=== PATIENT | female | born 1965 | race Caucasian/White ===

== ENCOUNTER 2021-02-26 10:54 | Emergency (ER) | payer BC, OTHER ==
--- NOTE | 2021-02-26 12:16 | EDM.PDOC ---
ED HPI GENERAL MEDICAL PROBLEM - General Chief Complaint: Respiratory Problem Stated Complaint: COUGH,SOB Time Seen by Provider: 02/26/21 13:00 Source of Information: Reports: Patient, Family History Limitations: Reports: No Limitations - History of Present Illness INITIAL COMMENTS - FREE TEXT/NARRATIVE: 55-year-old female on disability because of lumbar spine surgeries and serious disease comes now because she has had a cough of increasing severity and intensity for the last week with cough keeping her awake at night with apparently shaking chills fever and loss of appetite. 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 Her chest hurts when she coughs because she has been coughing a fair amount. No cardiac disease noted. She apparently had disc protrusion during prolonged labor with a 10 pound child some 30 years ago. She has not had Covid vaccine but she has not been out of the house she has confined primarily because of her disability. - Related Data Allergies Allergy/AdvReac Type Severity Reaction Status Date / Time Sulfa (Sulfonamide Allergy Rash Verified 02/26/21 11:14 Antibiotics) Home Meds: Home Meds Cholecalciferol (Vitamin D3) [Vitamin D3] 10,000 unit PO DAILY 02/26/21 [History] Dexlansoprazole [Dexilant] 60 mg PO DAILY 02/26/21 [History] Diclofenac Sodium [Voltaren 1% Gel] 1 applic TOP QID 02/26/21 [History] Escitalopram [Lexapro] 20 mg PO DAILY 02/26/21 [History] Gabapentin [Neurontin] 900 mg PO TID 02/26/21 [History] Hydrocodone/Acetaminophen [HYDROcodone-Acetaminophen 2.5-325 MG] 2 tab PO Q6H PRN 02/26/21 [History] LORazepam [Ativan] 1 mg PO BID PRN 02/26/21 [History] SUMAtriptan [Imitrex] 50 mg PO Q2H PRN 02/26/21 [History] Warfarin [Coumadin] 2 mg PO ASDIRECTED 02/26/21 [History] Warfarin [Coumadin] 4 mg PO ASDIRECTED 02/26/21 [History] buPROPion [buPROPion XL] 300 mg PO DAILY 02/26/21 [History] busPIRone [Buspar] 30 mg PO BID 02/26/21 [History] tiZANidine [Zanaflex] 2 mg PO BID PRN 02/26/21 [History] Social & Family History - Tobacco Use Tobacco Use Status *Q: Never Tobacco User - Caffeine Use Caffeine Use: Reports: None - Recreational Drug Use Recreational Drug Use: No ED ROS GENERAL - Review of Systems Review Of Systems: Comprehensive ROS is negative, except as noted in HPI. ED EXAM, GENERAL - Physical Exam Exam: See Below Free Text/Narrative:: Alert cooperative female lying on the gurney not appearing in great distress HEENT shows eyes ears nose and throat appear to be normal no facial droop vision appears to be grossly normal Neck is supple normal range of motion with it out increased nodes Chest is clear on auscultation with a regular rate and rhythm although a little rapid rate now Abdomen is soft with active bowel sounds and nontender without mass Extremities without edema Skin appears normal without rash or ecchymosis Neurologic physiologic DTR tone and coordination Course - Vital Signs Text/Narrative:: Covid test is positive on February 26 in the emergency department Patient remained stable in the emergency department. At 430 she is eating. Reviewed laboratory shows that she has mildly altered laboratory tests compatible with early Covid. Chest x-ray is okay on my review I discussed with her various options and we will do an outpatient order for an antiviral which she can perhaps get tomorrow I also discussed with her the use of ivermectin which is recently shown in the literature to be effective in reducing viral counts and I will prescribe 3 mg ivermectin twice daily for the next 3 days. She is camping here from out of town. She is to return for new or worse symptoms. Does not need supplemental oxygen at this juncture. Last Recorded V/S: Last Vital Signs Temp 37.6 C 02/26/21 11:18 Pulse 103 H 02/26/21 15:29 Resp 18 02/26/21 13:42 BP 129/81 02/26/21 15:29 Pulse Ox 95 02/26/21 15:29 - Orders/Labs/Meds Orders: Active Orders 24 hr Category Date Time Status EKG Documentation Completion [RC] ASDIRECTED Care 02/26/21 13:06 Active CULTURE BLOOD [BC] Stat Lab 02/26/21 13:34 Received CULTURE RESPIRATORY + SMEAR [RM] Stat Lab 02/26/21 13:14 Ordered EKG 12 Lead [EK] Stat Ther 02/26/21 13:04 Ordered Labs: Laboratory Tests 02/26/21 02/26/21 02/26/21 Range/Units 13:05 13:15 13:19 WBC 3.5 L (4.5-11.0) K/uL RBC 4.17 (3.30-5.50) M/uL Hgb 13.4 (12.0-15.0) g/dL Hct 40.5 (36.0-48.0) % MCV 97 (80-98) fL MCH 32 H (27-31) pg MCHC 33 (32-36) % Plt Count 154 (150-400) K/uL PT (9.5-12.0) sec INR (0.80-1.20) D-Dimer, Quantitative (0.0-500.0) ng/mL ABG Hemoglobin 13.8 (12.0-16.0) g/dL ABG Oxyhemoglobin 62.6 % ABG Carboxyhemoglobin 1.5 (0.0-1.6) % ABG Methemoglobin 1.1 % VBG pH 7.460 H (7.350-7.450) VBG pCO2 37.4 mm/Hg VBG pO2 33.2 mm/Hg VBG HCO3 26.2 mmol/L VBG Total CO2 23.1 mmol/L VBG O2 Saturation 64.3 VBG O2 Content 12.1 %vol VBG Base Excess 2.9 mm/L O2 Delivery Device Room air Sodium (140-148) mmol/L Potassium (3.6-5.2) mmol/L Chloride (100-108) mmol/L Carbon Dioxide (21-32) mmol/L Anion Gap (5.0-14.0) mmol/L BUN (7-18) mg/dL Creatinine (0.6-1.0) mg/dL Est Cr Clr Drug Dosing mL/min Estimated GFR (MDRD) (>60) Glucose (74-106) mg/dL Calcium (8.5-10.1) mg/dL Ferritin 110 (8-388) ng/ml Total Bilirubin (0.2-1.0) mg/dL AST (15-37) U/L ALT (12-78) U/L Alkaline Phosphatase (46-116) U/L Troponin I (0.000-0.056) ng/mL C-Reactive Protein (0.0-0.3) mg/dL NT-Pro-B Natriuret Pep (5-125) pg/mL Total Protein (6.4-8.2) g/dL Albumin (3.4-5.0) g/dL Globulin (2.3-3.5) g/dL Albumin/Globulin Ratio (1.2-2.2) Urine Color (YELLOW) Urine Appearance (CLEAR) Urine pH (5.0-8.0) Ur Specific [place] (1.008-1.030) Urine Protein (NEGATIVE) mg/dL Urine Glucose (UA) (NEGATIVE) mg/dL Urine Ketones (NEGATIVE) mg/dL Urine Occult Blood (NEGATIVE) Urine Nitrite (NEGATIVE) Urine Bilirubin (NEGATIVE) Urine Urobilinogen (0.2-1.0) EU/dL Ur Leukocyte Esterase (NEGATIVE) Urine RBC (0-5) Urine WBC (0-5) Ur Epithelial Cells Amorphous Sediment Urine Bacteria Urine Mucus SARS CoV-2 RNA Rapid DARRYN 02/26/21 02/26/21 02/26/21 Range/Units 13:19 13:19 13:19 WBC (4.5-11.0) K/uL RBC (3.30-5.50) M/uL Hgb (12.0-15.0) g/dL Hct (36.0-48.0) % MCV (80-98) fL MCH (27-31) pg MCHC (32-36) % Plt Count (150-400) K/uL PT 19.4 H (9.5-12.0) sec INR 1.80 H (0.80-1.20) D-Dimer, Quantitative 351.71 (0.0-500.0) ng/mL ABG Hemoglobin (12.0-16.0) g/dL ABG Oxyhemoglobin % ABG Carboxyhemoglobin (0.0-1.6) % ABG Methemoglobin % VBG pH (7.350-7.450) VBG pCO2 mm/Hg VBG pO2 mm/Hg VBG HCO3 mmol/L VBG Total CO2 mmol/L VBG O2 Saturation VBG O2 Content %vol VBG Base Excess mm/L O2 Delivery Device Sodium 141 (140-148) mmol/L Potassium 4.3 (3.6-5.2) mmol/L Chloride 103 (100-108) mmol/L Carbon Dioxide 28 (21-32) mmol/L Anion Gap 9.6 (5.0-14.0) mmol/L BUN 9 (7-18) mg/dL Creatinine 1.1 H (0.6-1.0) mg/dL Est Cr Clr Drug Dosing 49.31 mL/min Estimated GFR (MDRD) 51 L (>60) Glucose 89 (74-106) mg/dL Calcium 8.7 (8.5-10.1) mg/dL Ferritin (8-388) ng/ml Total Bilirubin 0.2 (0.2-1.0) mg/dL AST 50 H (15-37) U/L ALT 55 (12-78) U/L Alkaline Phosphatase 77 (46-116) U/L Troponin I < 0.017 (0.000-0.056) ng/mL C-Reactive Protein 1.22 H (0.0-0.3) mg/dL NT-Pro-B Natriuret Pep 65 (5-125) pg/mL Total Protein 6.8 (6.4-8.2) g/dL Albumin 3.5 (3.4-5.0) g/dL Globulin 3.3 (2.3-3.5) g/dL Albumin/Globulin Ratio 1.1 L (1.2-2.2) Urine Color (YELLOW) Urine Appearance (CLEAR) Urine pH (5.0-8.0) Ur Specific [place] (1.008-1.030) Urine Protein (NEGATIVE) mg/dL Urine Glucose (UA) (NEGATIVE) mg/dL Urine Ketones (NEGATIVE) mg/dL Urine Occult Blood (NEGATIVE) Urine Nitrite (NEGATIVE) Urine Bilirubin (NEGATIVE) Urine Urobilinogen (0.2-1.0) EU/dL Ur Leukocyte Esterase (NEGATIVE) Urine RBC (0-5) Urine WBC (0-5) Ur Epithelial Cells Amorphous Sediment Urine Bacteria Urine Mucus SARS CoV-2 RNA Rapid DARRYN 02/26/21 02/26/21 Range/Units 13:20 16:13 WBC (4.5-11.0) K/uL RBC (3.30-5.50) M/uL Hgb (12.0-15.0) g/dL Hct (36.0-48.0) % MCV (80-98) fL MCH (27-31) pg MCHC (32-36) % Plt Count (150-400) K/uL PT (9.5-12.0) sec INR (0.80-1.20) D-Dimer, Quantitative (0.0-500.0) ng/mL ABG Hemoglobin (12.0-16.0) g/dL ABG Oxyhemoglobin % ABG Carboxyhemoglobin (0.0-1.6) % ABG Methemoglobin % VBG pH (7.350-7.450) VBG pCO2 mm/Hg VBG pO2 mm/Hg VBG HCO3 mmol/L VBG Total CO2 mmol/L VBG O2 Saturation VBG O2 Content %vol VBG Base Excess mm/L O2 Delivery Device Sodium (140-148) mmol/L Potassium (3.6-5.2) mmol/L Chloride (100-108) mmol/L Carbon Dioxide (21-32) mmol/L Anion Gap (5.0-14.0) mmol/L BUN (7-18) mg/dL Creatinine (0.6-1.0) mg/dL Est Cr Clr Drug Dosing mL/min Estimated GFR (MDRD) (>60) Glucose (74-106) mg/dL Calcium (8.5-10.1) mg/dL Ferritin (8-388) ng/ml Total Bilirubin (0.2-1.0) mg/dL AST (15-37) U/L ALT (12-78) U/L Alkaline Phosphatase (46-116) U/L Troponin I (0.000-0.056) ng/mL C-Reactive Protein (0.0-0.3) mg/dL NT-Pro-B Natriuret Pep (5-125) pg/mL Total Protein (6.4-8.2) g/dL Albumin (3.4-5.0) g/dL Globulin (2.3-3.5) g/dL Albumin/Globulin Ratio (1.2-2.2) Urine Color Yellow (YELLOW) Urine Appearance Clear (CLEAR) Urine pH 6.0 (5.0-8.0) Ur Specific [place] 1.020 (1.008-1.030) Urine Protein 30 H (NEGATIVE) mg/dL Urine Glucose (UA) Negative (NEGATIVE) mg/dL Urine Ketones 40 H (NEGATIVE) mg/dL Urine Occult Blood Small H (NEGATIVE) Urine Nitrite Negative (NEGATIVE) Urine Bilirubin Negative (NEGATIVE) Urine Urobilinogen 0.2 (0.2-1.0) EU/dL Ur Leukocyte Esterase Trace H (NEGATIVE) Urine RBC 5-10 H (0-5) Urine WBC 0-5 (0-5) Ur Epithelial Cells Occasional Amorphous Sediment Few Urine Bacteria Few Urine Mucus Not seen SARS CoV-2 RNA Rapid DARRYN Positive H Meds: Medications Discontinued Medications Generic Name Dose Route Start Last Admin Trade Name Maikol PRN Reason Stop Dose Admin Sodium Chloride 1,000 mls @ 1,000 mls/hr 02/26/21 13:07 02/26/21 13:39 Normal Saline IV 02/26/21 14:06 1,000 mls/hr .BOLUS ONE Administration Departure - Departure Time of Disposition: 16:50 Disposition: Home, Self-Care 01 Condition: Good Clinical Impression: Short of breath on exertion, COVID - Discharge Information Referrals: PCP,None [Primary Care Provider] - Sepsis Event Note (ED) - Evaluation Sepsis Screening Result: Possible Sepsis Risk - Focused Exam Vital Signs: Vital Signs Temp Pulse Resp BP Pulse Ox 02/26/21 15:29 103 H 129/81 95 02/26/21 13:42 98 18 133/82 93 L 02/26/21 11:18 37.6 C 95 16 146/71 H 97 02/26/21 11:16 37.6 C 95 16 146/71 H 97 - My Orders Last 24 Hours: My Active Orders 02/26/21 13:04 EKG 12 Lead [EK] Stat 02/26/21 13:06 EKG Documentation Completion [RC] ASDIRECTED 02/26/21 13:14 CULTURE RESPIRATORY + SMEAR [RM] Stat 02/26/21 13:34 CULTURE BLOOD [BC] Stat - Assessment/Plan Last 24 Hours: My Active Orders 02/26/21 13:04 EKG 12 Lead [EK] Stat 02/26/21 13:06 EKG Documentation Completion [RC] ASDIRECTED 02/26/21 13:14 CULTURE RESPIRATORY + SMEAR [RM] Stat 02/26/21 13:34 CULTURE BLOOD [BC] Stat
[2021-02-26] MEDS ORDERED: Sodium Chloride 0.9% 1,000 ML IV ONE (13:07)
--- NOTE | 2021-02-26 14:28 | CR ---
CHEST: Portable 02/26/2021 at 1:28 PM CLINICAL HISTORY:Pain COMPARISON:None FINDINGS: The heart size, pulmonary vascularity and hilar structures are normal. No infiltrate effusion or pneumothorax is seen. IMPRESSION: No acute cardiopulmonary process.
== END 2021-02-26 17:00 | disposition home or self-care (01) ==
LOC: JP.ED 10:54
DX: U07.1 COVID-19 (principal); R00.0 Tachycardia, unspecified; Z88.2 Allergy status to sulfonamides; Z79.899 Other long term (current) drug therapy
CPT/HCPCS: 36415; 71045; 80053; 81001; 82728; 82803; 83880; 84484; 85027; 85379; 85610; 86140; 87040; 87635; 93005; 99284; J7030; U0002